=== PATIENT | male | born 1950 | race African-American/Black ===

== ENCOUNTER 2017-12-21 11:54 | Emergency (ER) | payer MEDICARE ==
[~2017-12-21] VITALS: Ht 180.3 cm; Wt 110.0 kg
[2017-12-21] MEDS ORDERED: METF-816 PO (12:00)
[2017-12-21] MEDS ORDERED: OXYCODONE HCL/ACETAMINOPHEN 5/325MG TABLET PO ONE (12:30)
[2017-12-21 13:41] VITALS: BP 168/82
== END 2017-12-21 13:44 | disposition home or self-care (01) ==
LOC: ER 11:54 → EDBD 11:54 → ER 13:44
DX: G89.29 Other chronic pain (principal); M54.5 Low back pain; I10 Essential (primary) hypertension; E11.9 Type 2 diabetes mellitus without complications; M25.559 Pain in unspecified hip; M79.673 Pain in unspecified foot; Z79.899 Other long term (current) drug therapy
CPT/HCPCS: 99283